=== PATIENT | female | born 1955 | race Two or more races ===

== ENCOUNTER 2016-06-02 20:56 | Emergency (ER) | payer MEDICAID, OTHER ==
[~2016-06-02] VITALS: Ht 160 cm; Wt 46.3 kg
[2016-06-02 21:00] VITALS: BP 165/93
== END 2016-06-03 05:16 | disposition left against medical advice (07) ==
LOC: ER 21:07
DX: R09.89 Other specified symptoms and signs involving the circulatory and respiratory systems (principal); Z53.21 Procedure and treatment not carried out due to patient leaving prior to being seen by health care provider
CPT/HCPCS: 70360; 71250